=== PATIENT | male | born 1995 | race Caucasian/White ===

== ENCOUNTER → 2021-02-27 14:27 | Outpatient (BNVA) | payer OTHER, SELFPAY | PROVIDERS: Visit Provider Psychiatry & Neurology Psychiatry | DX: F41.1 Generalized anxiety disorder (principal); F33.1 Major depressive disorder, recurrent, moderate | CPT/HCPCS: 99204 ==

== ENCOUNTER 2022-10-16 10:06 | Outpatient (CLI) | payer OTHER, SELFPAY ==
--- NOTE | 2022-10-16 10:15 | USCV_ITS ---
Jeff Cedeno Age: 27 Gender: M : 1995 Exam Date: 10/16/2022 10:24 Ordering Phys: Ta Blackwood MD Technologist: Jarocho Florian [place] [facility] [place]: RIGHT CALF PAIN- painfu lump present since Thursday PROCEDURES: Venous duplex imaging was performed in only the right lower extremity. The following venous structures were evaluated: common femoral vein, profunda vein, proximal portion of the greater saphenous vein, superficial femoral vein, and the popliteal vein. In addition, the posterior tibial and peroneal trunk were evaluated. Serial compression, augmentation maneuvers, and spectral Doppler flow evaluation were performed. FINDINGS: Normal 2-D Doppler and augmentation and compressibility throughout the lower extremity venous structures. Additional imaging through the proximal calf veins also reveals no thrombus. Limited evaluation of the greater saphenous vein is patent with no thrombus.. Patient directed to a lump in his right lower extremity that is medial just sup to the ankle. This area appears to be edematous? CONCLUSIONS No evidence of right lower extremity DVT. Subcutaneous edema RLE in the area of concern just above the ankle Ferdinand Torres MD (Electronically Signed) Final Date: 16 October 2022 12:08 S
== END 2022-10-16 10:07 | disposition home or self-care (01) ==
PROVIDERS: Visit Provider Family Medicine Adult Medicine
DX: M79.661 Pain in right lower leg (principal); R22.41 Localized swelling, mass and lump, right lower limb
CPT/HCPCS: 93971

== ENCOUNTER → 2023-04-10 10:47 | Outpatient (BNVA) | payer OTHER, SELFPAY | PROVIDERS: PCP Family Medicine; Visit Provider Family Medicine | DX: F41.1 Generalized anxiety disorder (principal); F33.1 Major depressive disorder, recurrent, moderate; Z11.4 Encounter for screening for human immunodeficiency virus [HIV]; Z11.59 Encounter for screening for other viral diseases | CPT/HCPCS: 80053; 80061; 84443; 85025; 86803; 87806 ==